=== PATIENT | female | born 1960 | race Caucasian/White ===

== ENCOUNTER 2017-04-11 15:51 | Emergency (ER) | payer BC ==
[~2017-04-11] VITALS: Ht 157.5 cm; Wt 58.0 kg
[~2017-04-11 15:51] MED LIST: EFFE150C PO; LITH300C2 PO
[2017-04-11] MEDS ORDERED: ONDANSETRON HCL 4 MG/2 ML VIAL IV PUSH ONE (16:00)
[2017-04-11] MEDS ORDERED: HYDROmorphone HCL PF 1 MG/ML VIAL IV PUSH ONE ×3 (16:00→17:15)
[2017-04-11] MEDS ORDERED: SODIUM CHLOR 0.9% 1000 ML INJ 1,000 ML IV ONE (16:00)
[2017-04-11 16:11] VITALS: BP 120/67; PULSE 114; RESP 16; TEMP 98.2; O2SAT 98
[2017-04-11 16:21] LABS: AUTOMATED NEUTROPHIL # 7.6 TH/MM3 (1.8-7.7); BASOPHIL # 0.1 TH/MM3 (0-0.2); BASOPHIL % 1.3 % (0.0-2.0); EOSINOPHIL # 0.1 TH/MM3 (0-0.4); EOSINOPHIL % 0.7 % (0.0-4.0); HEMATOCRIT 42.3 % (35.0-46.0); HEMO FLAGS DIFF FINAL; LYMPH % 24.3 % (9.0-44.0); LYMPHOCYTE # 2.8 TH/MM3 (1.0-4.8); MEAN CELL VOLUME 89.1 FL (80.0-100.0); MEAN CORPUSCULAR HEMOGLOBIN 29.8 PG (27.0-34.0); MEAN CORPUSCULAR HGB CONC 33.5 % (32.0-36.0); MONO % 7.8 % (0.0-8.0); NEUT % 65.9 % (16.0-70.0); PLATELET COUNT 340 TH/MM3 (150-450); RED BLOOD COUNT 4.74 MIL/MM3 (4.00-5.30); WHITE BLOOD COUNT 11.5 TH/MM3 (4.0-11.0)
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
[2017-04-11 16:29] LABS: CHLORIDE 104 MEQ/L (98-107); POTASSIUM 3.7 MEQ/L (3.5-5.1); SODIUM (NA) 138 MEQ/L (136-145)
[2017-04-11 16:33] LABS: ANION GAP 10 MEQ/L (5-15); BICARBONATE 23.8 MEQ/L (21.0-32.0); BLOOD UREA NITROGEN 17 MG/DL (7-18)
[2017-04-11 16:36] LABS: ALT (GPT) 24 U/L (10-53); AST (GOT) 20 U/L (15-37); GLOMERULAR FILTRATION RATE 66 ML/MIN (>89)
[2017-04-11 16:38] LABS: TOTAL BILIRUBIN ADULT 0.4 MG/DL (0.2-1.0)
[2017-04-11 16:39] LABS: ALKALINE PHOSPHATASE 99 U/L (45-117); CREATINE KINASE 101 U/L (26-192)
[2017-04-11] MEDS ORDERED: SODIUM CHLOR 0.9% 1000 ML INJ 3,000 ML IV STA (16:58)
[2017-04-11 17:05] VITALS: BP 136/81; PULSE 110; RESP 16; O2SAT 100
[2017-04-11 17:21] VITALS: O2SAT 100
[2017-04-11] MEDS ORDERED: TETANUS/DIPHTHERIA TOXOID ADULT 0.5 ML VIAL IM ONE (17:30)
[2017-04-11 18:42] VITALS: BP 138/71; PULSE 105; RESP 16; O2SAT 96
== END 2017-04-11 18:57 | disposition short-term general hospital (02) ==
LOC: PHED 15:51
DX: T31.20 Burns involving 20-29% of body surface with 0% to 9% third degree burns (principal); T21.24XA Burn of second degree of lower back, initial encounter; T22.292A Burn of second degree of multiple sites of left shoulder and upper limb, except wrist and hand, initial encounter; T22.291A Burn of second degree of multiple sites of right shoulder and upper limb, except wrist and hand, initial encounter; T24.212A Burn of second degree of left thigh, initial encounter; T24.211A Burn of second degree of right thigh, initial encounter; Z23 Encounter for immunization; Z86.59 Personal history of other mental and behavioral disorders; Z85.3 Personal history of malignant neoplasm of breast; X08.8XXA Exposure to other specified smoke, fire and flames, initial encounter
CPT/HCPCS: 80053; 82550; 85025; 90471; 90714; 96361; 96374; 96375; 96376; 99285; J1170; J2405; J7030

== ENCOUNTER → 2017-11-14 | Day surgery (SDC) | payer BC ==
[~2017-11-14] VITALS: Ht 157.5 cm; Wt 59.0 kg
[~2017-11-14] MED LIST changes: +ACETAMINOPHEN/HYDROcodone 325 MG/10 MG TAB ONE; +ALPR0.25 PO; +CEPH-460 PO; +CHLORHEXIDINE GLUCONATE 2 % 1 PACK (2 CLOTHS) TOPICAL PRN; +DEXAMETHASONE SOD PHOS 4 MG/ML VIAL ONE; +HYDR-3288 PO; +IBUP-232 PO; +INSULIN HUMAN REGULAR 1,000 UNITS/10 ML VIAL SQ PRN; +LACTATED RINGER'S 1000 ML IV PRN; +METOPROLOL TARTRATE 25 MG TAB PO PRN; +MIDAZOLAM HCL 2 MG/2 ML VIAL ONE; +POVIDONE IODINE 5% (ANTISEPSIS KIT) 4 APPLICATIONS EACH NARE PRN; +SODIUM CHLOR 0.9% 250 ML INJ 250 ML ONE; +SODIUM CHLORID 0.9% 500 ML IV PRN; +SODIUM CHLORIDE 0.9% INJ 0 ML ONE; +VANCOMYCIN HCL 1000 MG VIAL ONE; +ceFAZolin 1,000 MG/NS 100 ML IV SCH
[2017-11-14 13:06] VITALS: PULSE 107
[2017-11-14 13:30] VITALS: PULSE 100; TEMP 98.2
--- NOTE | 2017-11-14 13:56 | MP ---
cc: Dominic Dolan MD DATE OF OPERATION: 11/14/2017 DATE OF PROCEDURE: 11/14/2017 PREOPERATIVE DIAGNOSIS: Left thumb arthritis and pain. POSTOPERATIVE DIAGNOSIS: Left thumb arthritis and pain. PROCEDURE PERFORMED: 1. Left thumb MCP joint fusion. 2. Use of image intensifier. SURGEON: Dominic Dolan III, MD DESCRIPTION OF PROCEDURE: The patient was brought to the operating room and placed supine on the operating table. After the correct site and side of surgery were verified by members of each team in the room multiple times including the patient and myself and after adequate preoperative markings and preoperative written consent were verified by everyone and after adequate preoperative timeout was performed to everyone's satisfaction, and after adequate general anesthesia had been achieved, the left upper extremity was prepped and draped in traditional sterile surgical fashion. Using the mini C-arm, the site of the intended procedure was verified. A 50/50 mixture of 2% plain lidocaine and 0.5% plain Marcaine was infiltrated in the skin and subcutaneous tissue and into the joint. The limb was exsanguinated. Gentle Hilario wrap was used and a highly-placed well-padded axillary tourniquet was inflated to 200 mmHg for a total of 66 minutes. A longitudinally oriented incision over the dorsal aspect of the MP joint was made, and carried down through skin and subcutaneous tissue. Bipolar electrocautery was used. Blunt dissection was then performed. The loomis of the MP joint was then entered between the EPB and the EPL tendons, retracting them in opposite directions. The MP joint was then entered. There was no cartilage on the head of the metacarpal. It was completely bare. There is no sign of any infection. All of the remaining cartilage on the rim of the metacarpal head dorsally was removed. It was decorticated down to corticocancellous bone. The proximal phalanx was then stripped of all of its cartilage very easily. The ends were then shaped and kept as long as possible and were placed into slight 10-degree flexion and 5-10 degrees of pronation, secured in place with two 0.045 cm K-wires and then an 18-gauge surgical steel wire was placed through a drill hole in the metaphysis of the proximal phalanx deep to the K-wires. The K-wires were tailored to length. The cerclage wire compression was then performed, completely compressing the joint fusion of the metacarpal and the proximal phalanx nicely. Some of the stripped bone from the rim of the metacarpal was used as bone graft. Thorough irrigation was performed with saline multiple times throughout this case. The final x-rays were obtained. The ends of the pin were buried within the cortex of the metacarpal and the cerclage notch was also secured underneath one of the pins so as to not prove irritating later on down the line. Thorough irrigation was done again. The extensor loomis was repaired using 4-0 Ethibond sutures in a [id number] fashion. Thorough irrigation was performed again. Skin edges were then reapproximated after all of the hardware was completely covered using running and interrupted 4-0 nylon sutures. Thorough irrigation was performed several times throughout the closure. The additional local anesthetic was infiltrated proximally to provide for postoperative pain relief. The hand and arm were thoroughly cleansed with dried. Betadine, Adaptic dressing was applied on top of the wound followed by a bulky, well-moulded, well-padded short arm thumb spica splint all the way out to the tip of the thumb. The axillary tourniquet was released and the hand and all fingers including the thumb became immediately soft, pink, and warm and had brisk capillary refill less than 2 seconds. There was no evidence of any bleeding or hematoma formation. The patient was awakened from anesthesia and transported to the postanesthesia care unit awake and in stable condition at the end of the case. Sponge, needle and instrument counts were correct at the end of the case as reported by the nurse in the room. MD BETTY Hernandes/RUPA , 01:28 PM , 01:54 PM
[2017-11-14 14:30] VITALS: BP 104/47; PULSE 106; RESP 14; O2SAT 98
== END | disposition home or self-care (01) ==
LOC: PHSDC 10:13
PROVIDERS: ATTEND Orthopaedic Surgery Hand Surgery
DX: M19.042 Primary osteoarthritis, left hand (principal)
CPT/HCPCS: 01830; 26850; J0690; J1100; J2250; J3010; J3370; J7050; J7120; L3808; 76000